=== PATIENT | male | born 1970 | race Caucasian/White ===

== ENCOUNTER → 2022-02-19 | Outpatient (CLI) | payer OTHER ==
--- NOTE | 2022-02-19 18:35 | RAD ---
Study: XR SHOULDER_RIGHT 2+ VIEWS Indication: Persistent pain. Recent injuries. Comparison: None. Findings: Alignment is anatomic. No acute fracture. No significant arthrosis. The visualized thoracic contents are within normal limits. ACDF construct. Impression: No fracture, malalignment or advanced arthrosis at the right shoulder. Electronically signed by: LAUREN RAYMUNDO MD (02/19/2022 6:33 PM) [facility]
== END ==
LOC: RAD 18:02
PROVIDERS: ATTEND Nurse Practitioner Family
DX: S49.91XA Unspecified injury of right shoulder and upper arm, initial encounter (principal); X58.XXXA Exposure to other specified factors, initial encounter; Y93.89 Activity, other specified; Y92.89 Other specified places as the place of occurrence of the external cause; Y99.8 Other external cause status
CPT/HCPCS: 73030